=== PATIENT | female | born 1950 | race Caucasian/White ===

== ENCOUNTER → 2020-08-07 | Outpatient (CLI) | payer MEDICARE ==
[~2020-08-07] MED LIST: CATHETER FLUSH 10 ML SYR IV PRN; HOLD METFORMIN - RECEIVED CONTRAST 20 ML VIAL IV SCH; IOHEXOL 350 MG/ML 100 ML (OMNIPAQUE 350) VIAL IV ONE; NS 100 ML (IVPB) BAG IV ONE
[2020-08-07 10:01] LABS: BUN/CREATININE RATIO 15; CARBON DIOXIDE 27 MMOL/L (21-32); CHLORIDE 101 MMOL/L (98-107); CREATININE SERUM 0.86 MG/DL (0.60-1.30); GFR ESTIMATED > 60; SODIUM 136 MMOL/L (135-145)
[2020-08-07 10:06] LABS: ALANINE AMINOTRANSFERASE 12 U/L (0-55); ALBUMIN 3.9 GM/DL (3.2-4.5); ALKALINE PHOSPHATASE 78 U/L (40-136); BILIRUBIN,TOTAL 0.3 MG/DL (0.1-1.0); CALCIUM 9.1 MG/DL (8.5-10.1); GLUCOSE 102 MG/DL (70-105); TOTAL PROTEIN 7.4 GM/DL (6.4-8.2)
--- NOTE | 2020-08-07 11:20 | Diagnostic Imaging Report ---
EXAMINATION: CT chest with intravenous contrast. TECHNIQUE: Multiple contiguous axial images were obtained through the chest after the uneventful administration of intravenous contrast. All CT scans use one or more of the following dose optimizing techniques: automated exposure control, MA and/or KvP adjustment based on patient size and exam type or iterative reconstruction. HISTORY: Left-sided back pain for 2 days. COMPARISON: None available. 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 No pericardial effusion is present. There is no mediastinal, hilar, or axillary lymphadenopathy. Rounded opacity is seen in the left lung base measuring 3.6 cm. There is central fluid within this area of opacity. Subsegmental atelectasis is seen in the right lung base. Nodule seen in the right middle lobe measuring 3 mm. Centrilobular emphysema is seen in the lungs, greatest in the apices. No central endobronchial obstructing lesions are identified. There is no pleural effusion or pneumothorax. The osseous structures demonstrate no acute abnormalities. Limited views of the upper abdominal structures demonstrate no acute abnormalities. Benign-appearing cysts are seen in the right kidney. Both adrenal glands are unremarkable. IMPRESSION: 1. Rounded opacity in the left lung base, favored to represent round atelectasis. There is central fluid within this area of opacity which is indeterminate and may represent necrosis. Consider follow-up in [address] chest. 2. Nodule in the right middle lobe measuring 3 mm. Recommend attention on follow-up. 3. Centrilobular emphysema, greatest in the apices. Dictated by: Dictated on workstation # [id number]
== END ==
LOC: RAD FS 09:23
PROVIDERS: ATTEND Nurse Practitioner
DX: J43.2 Centrilobular emphysema (principal); R91.1 Solitary pulmonary nodule
CPT/HCPCS: 36415; 71260; 80053